=== PATIENT | female | born 1945 | race Caucasian/White ===

== ENCOUNTER 2021-09-21 14:14 | Outpatient (CLI) | payer MEDICARE | END 2021-09-21 14:15 | disposition home or self-care (01) | LOC: CSHMAMMO 14:14 | PROVIDERS: ATTEND Internal Medicine Hematology & Oncology | DX: Z13.820 Encounter for screening for osteoporosis (principal); M85.851 Other specified disorders of bone density and structure, right thigh; M85.852 Other specified disorders of bone density and structure, left thigh; T38.6X5A Adverse effect of antigonadotrophins, antiestrogens, antiandrogens, not elsewhere classified, initial encounter | CPT/HCPCS: 77080 ==

== ENCOUNTER 2022-09-27 09:51 | Outpatient (CLI) | payer MEDICARE | END 2022-09-27 09:52 | disposition home or self-care (01) | LOC: CSHMAMMO 09:51 | PROVIDERS: ATTEND Internal Medicine Hematology & Oncology | DX: M85.852 Other specified disorders of bone density and structure, left thigh (principal); C50.111 Malignant neoplasm of central portion of right female breast | CPT/HCPCS: 77080 ==

== ENCOUNTER 2023-07-27 11:41 | Inpatient (IN) | payer MEDICARE ==
[2023-07-27] MEDS ORDERED: Dexamethasone 10 MG/ML VIAL ONE (12:16)
[2023-07-27] MEDS ORDERED: Ondansetron PF 4 MG/2 ML Vial ONE (12:16)
[2023-07-27] MEDS ORDERED: Acetaminophen 500 MG TAB ONE (12:16)
[2023-07-27 12:35] LABS: Actual Bicarbonate (HCO3a) 25.2 mEq/L (22-28); Base Excess (BEa) 1.9 mEq/L (-2.0 to +3.0); CO2 Tension 34.9 mmHg (35.0-45.0); Calcium, Ionized (arterial) 1.13 mmol/L (1.12-1.30); Carboxyhemoglobin (COHb) 0.3 gm% (0.0-3.0); Hematocrit-ABG 37 % (36.0-47.0); Hemoglobin (Hb) 12.7 g/dL (12.0-16.0); O2 Tension (PaO2), arterial 63.2 mmHg (> 70.0); Potassium - ABG Lab 3.38 mmol/L (3.70-5.30); Puncture Site RRA; pH, Arterial 7.476 (7.35-7.45)
[2023-07-27 12:41] LABS: Hematocrit 37.4 % (34.9-44.5); Mean Corpuscular HGB CONC 34.8 g/dL (32.0-36.0); Mean Corpuscular Hemoglobin 32.7 pg (27.0-33.0); Mean Corpuscular Volume 94.2 fl (81.6-98.3); Mean Platelet Volume 9.9 fl (7.4-10.4); Platelet Count 215 10x3/uL (150-450); RBC Distribution Width 12.5 % (11.5-14.5); Red Blood Cell (RBC) Count 3.97 10x6/uL (3.90-5.03); White Blood Cell (WBC) Count 7.8 10x3/uL (3.5-10.5)
[2023-07-27] MEDS ORDERED: LevoFLOXacin 750 mg/D5W 150 ml Premix Bag ONE (12:43)
[2023-07-27 12:47] LABS: ALT (SGPT) 20 U/L (8-55); AST (SGOT) 59 U/L (5-34); Albumin 3.3 g/dL (3.4-4.8); Alkaline Phosphatase 41 U/L (40-110); Anion Gap 17 mmol/L (10-20); BUN (Urea Nitrogen) 28 mg/dL (9.8-20.1); Bilirubin, Total 0.4 mg/dL (0.2-1.2); Calc. Creatinine Clearance 0 mL/min (70-130); Calcium 8.6 mg/dL (7.8-10.44); Carbon Dioxide 26 mmol/L (23-31); Chloride 92 mmol/L (98-107); Estimated GFR 64; Globulin 2.2 g/dL (2.4-3.5); Glucose 184 mg/dL (83-110); Potassium 3.7 mmol/L (3.5-5.1); Protein, Total 5.5 g/dL (5.8-8.1); Sodium 131 mmol/L (136-145)
[2023-07-27 12:50] LABS: D-Dimer Test 1.13 mg/L FEU (0.19-0.50); INR-International Normal Ratio 1.1; PTT 28.4 sec (22.0-33.0); Prothrombin Time 11.4 sec (9.5-12.1); Troponin I 0.066 ng/mL (< 0.028)
[2023-07-27] MEDS ORDERED: Dextrose 5% in Water 1,000 ML IV PRN (13:20)
[2023-07-27] MEDS ORDERED: HumaLOG 300 UNITS/3 ML VIAL SC PRN (13:20)
[2023-07-27] MEDS ORDERED: Glucagon 1 MG/ML KIT IM PRN (13:20)
[2023-07-27] MEDS ORDERED: Ondansetron ODT 4 MG TAB PO PRN (13:20)
[2023-07-27] MEDS ORDERED: Dextrose 50% Abboject 50 ML SYRINGE SLOW IVP PRN (13:20)
[2023-07-27] MEDS ORDERED: Ondansetron PF 4 MG/2 ML Vial IVP PRN (13:20)
[2023-07-27 13:22] LABS: Band 9 % (5-11); Monocytes 5 % (0-10); Myelocyte 2 % (0-0)
[2023-07-27 13:24] LABS: Lymphocytes 12 % (21-51); Reactive Lymphocytes 5 % (0-10)
[2023-07-27 13:25] LABS: Neutrophil 67 % (42-75); RBC Morph Comment Within Normal Limits
[2023-07-27 13:26] LABS: Platelet Adequacy Comment Appears Adequate
[2023-07-27 13:27] LABS: MDiff Complete? YES; Platelet Clumps SLIGHT
[2023-07-27 14:21] LABS: SARS-CoV-2 NAA Rapid Test DETECTED (NotDetected)
[2023-07-27 19:39] LABS: Troponin I 0.031 ng/mL (< 0.028)
[2023-07-27 20:36] VITALS: BMI 28.3
[2023-07-27] MEDS: Sodium Chloride 0.9% 1,000 ML IV SCH (22:30)
[2023-07-27] MEDS: hydrALAZINE 25 MG TAB PO SCH (22:31)
[2023-07-27 23:00] LABS: Legionella Urinary Ag Negative (Negative); Strep pneumo Urine Ag NEGATIVE (NEGATIVE)
[2023-07-27] MEDS ORDERED: Ibuprofen 200 MG TAB PO SCH (23:45)
[2023-07-28] MEDS: Sodium Chloride 0.9% 1,000 ML IV SCH ×2 (03:16→09:48)
[2023-07-28 03:58] LABS: Hematocrit 39.2 % (34.9-44.5); Hemoglobin 12.8 g/dL (12.0-15.5); Mean Corpuscular HGB CONC 32.7 g/dL (32.0-36.0); Mean Corpuscular Hemoglobin 31.3 pg (27.0-33.0); Mean Corpuscular Volume 95.8 fl (81.6-98.3); Mean Platelet Volume 9.4 fl (7.4-10.4); Platelet Count 222 10x3/uL (150-450); RBC Distribution Width 12.6 % (11.5-14.5); Red Blood Cell (RBC) Count 4.09 10x6/uL (3.90-5.03); White Blood Cell (WBC) Count 5.9 10x3/uL (3.5-10.5)
[2023-07-28 04:01] LABS: ALT (SGPT) 19 U/L (8-55); AST (SGOT) 45 U/L (5-34); Albumin 3.1 g/dL (3.4-4.8); Alkaline Phosphatase 40 U/L (40-110); Anion Gap 16 mmol/L (10-20); BUN (Urea Nitrogen) 24 mg/dL (9.8-20.1); Bilirubin, Total 0.3 mg/dL (0.2-1.2); CRP (Inflammatory) 17.36 mg/dL (= or < 0.5); Calc. Creatinine Clearance 62 mL/min (70-130); Calcium 8.8 mg/dL (7.8-10.44); Carbon Dioxide 25 mmol/L (23-31); Chloride 102 mmol/L (98-107); Estimated GFR 67; Globulin 2.7 g/dL (2.4-3.5); Glucose 186 mg/dL (83-110); Magnesium 1.8 mg/dL (1.6-2.6); Potassium 4.4 mmol/L (3.5-5.1); Protein, Total 5.8 g/dL (5.8-8.1); Sodium 139 mmol/L (136-145)
[2023-07-28] MEDS: Ventolin HFA Inhaler 60 PUFF INHALER INH PRN ×3 (04:40→22:00)
[2023-07-28 04:54] LABS: MDiff Complete? YES
[2023-07-28 05:21] LABS: Band 6 % (5-11); Lymphocytes 2 % (21-51); Monocytes 6 % (0-10); Neutrophil 80 % (42-75); Reactive Lymphocytes 6 % (0-10)
[2023-07-28 05:24] LABS: Platelet Adequacy Comment Appears Adequate; RBC Morph Comment Within Normal Limits
[2023-07-28] MEDS: Levothyroxine Sodium 75 MCG TAB PO SCH (06:16)
[2023-07-28] MEDS: hydrALAZINE 25 MG TAB PO SCH ×2 (09:45→20:31)
[2023-07-28] MEDS: Fenofibrate Nanocrystallized 145 MG TAB PO SCH (09:45)
[2023-07-28] MEDS: Dexamethasone 4 mg/ml Vial SLOW IVP SCH (09:45)
[2023-07-28] MEDS ORDERED: Dexamethasone 20 MG/5 ML VIAL SLOW IVP SCH (11:00)
[2023-07-28] MEDS ORDERED: LevoFLOXacin 750 mg/D5W 750 MG in Premix 1 BAG IVPB SCH (12:00)
[2023-07-28] MEDS ORDERED: Loperamide HCl 2 MG CAP PO PRN (13:53)
[2023-07-28] MEDS ORDERED: Furosemide 40 MG/4 ML VIAL SLOW IVP SCH ×2 (15:30)
[2023-07-28] MEDS: HumaLOG 300 UNITS/3 ML VIAL SC PRN (16:43)
[2023-07-28] MEDS ORDERED: Ibuprofen 200 MG TAB PO SCH (21:15)
[2023-07-29] MEDS ORDERED: Ibuprofen 200 MG TAB PO SCH (04:00)
[2023-07-29] MEDS: Ventolin HFA Inhaler 60 PUFF INHALER INH PRN ×3 (04:10→18:35)
[2023-07-29 05:34] LABS: Hematocrit 39.6 % (34.9-44.5); Hemoglobin 13.1 g/dL (12.0-15.5); Mean Corpuscular HGB CONC 33.1 g/dL (32.0-36.0); Mean Corpuscular Hemoglobin 31.3 pg (27.0-33.0); Mean Corpuscular Volume 94.5 fl (81.6-98.3); Mean Platelet Volume 9.8 fl (7.4-10.4); Platelet Count 254 10x3/uL (150-450); RBC Distribution Width 12.8 % (11.5-14.5); Red Blood Cell (RBC) Count 4.19 10x6/uL (3.90-5.03); White Blood Cell (WBC) Count 8.9 10x3/uL (3.5-10.5)
[2023-07-29] MEDS: Levothyroxine Sodium 75 MCG TAB PO SCH (05:40)
[2023-07-29 05:44] LABS: ALT (SGPT) 18 U/L (8-55); AST (SGOT) 39 U/L (5-34); Albumin 3.1 g/dL (3.4-4.8); Alkaline Phosphatase 40 U/L (40-110); Anion Gap 16 mmol/L (10-20); BUN (Urea Nitrogen) 30 mg/dL (9.8-20.1); Bilirubin, Total 0.4 mg/dL (0.2-1.2); Calc. Creatinine Clearance 52 mL/min (70-130); Carbon Dioxide 26 mmol/L (23-31); Chloride 102 mmol/L (98-107); Estimated GFR 55; Globulin 2.7 g/dL (2.4-3.5); Glucose 179 mg/dL (83-110); Magnesium 1.7 mg/dL (1.6-2.6); Protein, Total 5.8 g/dL (5.8-8.1); Sodium 140 mmol/L (136-145)
[2023-07-29 06:03] LABS: MDiff Complete? YES
[2023-07-29 08:09] LABS: Band 8 % (5-11); Lymphocytes 5 % (21-51); Monocytes 7 % (0-10); Neutrophil 74 % (42-75); Reactive Lymphocytes 6 % (0-10)
[2023-07-29 08:12] LABS: RBC Morph Comment Within Normal Limits
[2023-07-29 08:13] LABS: Large Platelets SLIGHT (None Seen); Platelet Adequacy Comment Appears Adequate
[2023-07-29] MEDS: Dexamethasone 4 mg/ml Vial SLOW IVP SCH (08:31)
[2023-07-29] MEDS: hydrALAZINE 25 MG TAB PO SCH ×2 (08:32→20:12)
[2023-07-29] MEDS: Anastrozole 1 MG TAB PO SCH (09:13)
[2023-07-29] MEDS: Fenofibrate Nanocrystallized 145 MG TAB PO SCH (09:17)
[2023-07-29] MEDS: HumaLOG 300 UNITS/3 ML VIAL SC PRN ×2 (12:11→16:37)
[2023-07-29] MEDS ORDERED: Furosemide 40 MG/4 ML VIAL SLOW IVP SCH (13:00)
[2023-07-29] MEDS: Acetaminophen 325 MG TAB PO PRN (18:47)
[2023-07-29] MEDS: Ibuprofen 400 MG TAB PO PRN (20:29)
[2023-07-29] MEDS ORDERED: Lorazepam 0.5 MG TAB PO SCH (21:00)
[2023-07-30] MEDS: Ventolin HFA Inhaler 60 PUFF INHALER INH PRN ×3 (03:15→21:16)
[2023-07-30 04:04] LABS: #Monocytes 0.3 10x3/uL (0.0-1.1); #Neutrophils 7.6 10x3/uL (1.5-8.4); %Basophils 0.2 % (0.0-2.0); %Lymphocytes 16.5 % (18.0-47.0); %Monocytes 2.6 % (0.0-10.0); %Neutrophils 79.1 % (40.0-75.0); Hematocrit 40.7 % (34.9-44.5); Hemoglobin 13.8 g/dL (12.0-15.5); Mean Corpuscular HGB CONC 33.9 g/dL (32.0-36.0); Mean Corpuscular Volume 94.4 fl (81.6-98.3); Mean Platelet Volume 9.4 fl (7.4-10.4); Platelet Count 256 10x3/uL (150-450); RBC Distribution Width 12.8 % (11.5-14.5); Red Blood Cell (RBC) Count 4.31 10x6/uL (3.90-5.03); White Blood Cell (WBC) Count 9.6 10x3/uL (3.5-10.5)
[2023-07-30 04:09] LABS: ALT (SGPT) 19 U/L (8-55); AST (SGOT) 32 U/L (5-34); Albumin 3.2 g/dL (3.4-4.8); Alkaline Phosphatase 46 U/L (40-110); Anion Gap 17 mmol/L (10-20); BUN (Urea Nitrogen) 35 mg/dL (9.8-20.1); Bilirubin, Total 0.6 mg/dL (0.2-1.2); CRP (Inflammatory) 5.88 mg/dL (= or < 0.5); Calc. Creatinine Clearance 62 mL/min (70-130); Calcium 9.2 mg/dL (7.8-10.44); Carbon Dioxide 29 mmol/L (23-31); Chloride 100 mmol/L (98-107); Estimated GFR 67; Globulin 2.7 g/dL (2.4-3.5); Glucose 145 mg/dL (83-110); Magnesium 1.7 mg/dL (1.6-2.6); Potassium 3.7 mmol/L (3.5-5.1); Protein, Total 5.9 g/dL (5.8-8.1); Sodium 142 mmol/L (136-145)
[2023-07-30] MEDS: Levothyroxine Sodium 75 MCG TAB PO SCH (05:07)
[2023-07-30] MEDS: Ibuprofen 400 MG TAB PO PRN (05:13)
[2023-07-30] MEDS: Fenofibrate Nanocrystallized 145 MG TAB PO SCH (08:39)
[2023-07-30] MEDS: Dexamethasone 4 mg/ml Vial SLOW IVP SCH (08:39)
[2023-07-30] MEDS: hydrALAZINE 25 MG TAB PO SCH ×2 (08:39→20:51)
[2023-07-30] MEDS: Anastrozole 1 MG TAB PO SCH (08:39)
[2023-07-30] MEDS: HumaLOG 300 UNITS/3 ML VIAL SC PRN ×2 (11:43→15:50)
[2023-07-30] MEDS ORDERED: LevoFLOXacin 750 mg/D5W 750 MG in Premix 1 BAG IVPB SCH (12:00)
[2023-07-30] MEDS ORDERED: Furosemide 100 MG/10 ML VIAL SLOW IVP SCH (12:00)
[2023-07-30] MEDS: Acetaminophen 325 MG TAB PO PRN (12:59)
[2023-07-31] MEDS: Ibuprofen 400 MG TAB PO PRN (00:19)
[2023-07-31 03:42] LABS: #Monocytes 0.3 10x3/uL (0.0-1.1); #Neutrophils 6.1 10x3/uL (1.5-8.4); %Basophils 0.5 % (0.0-2.0); %Eosinophils 0.4 % (0.0-6.0); %Lymphocytes 20.3 % (18.0-47.0); %Monocytes 3.1 % (0.0-10.0); %Neutrophils 73.3 % (40.0-75.0); Hematocrit 42.1 % (34.9-44.5); Hemoglobin 14.2 g/dL (12.0-15.5); Mean Corpuscular HGB CONC 33.7 g/dL (32.0-36.0); Mean Corpuscular Hemoglobin 31.8 pg (27.0-33.0); Mean Corpuscular Volume 94.4 fl (81.6-98.3); Mean Platelet Volume 9.7 fl (7.4-10.4); Platelet Count 278 10x3/uL (150-450); RBC Distribution Width 12.7 % (11.5-14.5); Red Blood Cell (RBC) Count 4.46 10x6/uL (3.90-5.03); White Blood Cell (WBC) Count 8.3 10x3/uL (3.5-10.5)
[2023-07-31 03:58] LABS: ALT (SGPT) 18 U/L (8-55); AST (SGOT) 27 U/L (5-34); Albumin 3.2 g/dL (3.4-4.8); Alkaline Phosphatase 43 U/L (40-110); Anion Gap 17 mmol/L (10-20); BUN (Urea Nitrogen) 27 mg/dL (9.8-20.1); Bilirubin, Total 0.6 mg/dL (0.2-1.2); Calc. Creatinine Clearance 69 mL/min (70-130); Calcium 9.1 mg/dL (7.8-10.44); Carbon Dioxide 27 mmol/L (23-31); Chloride 99 mmol/L (98-107); Estimated GFR 77; Glucose 122 mg/dL (83-110); Magnesium 1.7 mg/dL (1.6-2.6); Potassium 3.3 mmol/L (3.5-5.1); Protein, Total 6.2 g/dL (5.8-8.1); Sodium 140 mmol/L (136-145)
[2023-07-31] MEDS: Levothyroxine Sodium 75 MCG TAB PO SCH (05:23)
[2023-07-31] MEDS: LevoFLOXacin 750 MG TAB PO SCH (05:23)
[2023-07-31] MEDS: Dexamethasone 4 mg/ml Vial SLOW IVP SCH (08:22)
[2023-07-31] MEDS: hydrALAZINE 25 MG TAB PO SCH ×2 (08:22→21:23)
[2023-07-31] MEDS: Anastrozole 1 MG TAB PO SCH (08:23)
[2023-07-31] MEDS: Fenofibrate Nanocrystallized 145 MG TAB PO SCH (08:23)
[2023-07-31] MEDS: Magnesium 2 GM/50 ML(in water) 2 GM in Premix 1 BAG IVPB SCH ×2 (08:59→09:23)
[2023-07-31] MEDS ORDERED: Potassium Chloride 20 MEQ TAB PO SCH ×2 (09:00→17:00)
[2023-07-31] MEDS: HumaLOG 300 UNITS/3 ML VIAL SC PRN ×2 (11:29→16:39)
[2023-07-31] MEDS ORDERED: Ventolin HFA Inhaler 60 PUFF INHALER INH SCH (18:30)
[2023-07-31] MEDS: Ventolin HFA Inhaler 60 PUFF INHALER INH SCH (18:48)
[2023-07-31] MEDS: Cholecalciferol 1,000 UNITS (25 MCG) TAB PO SCH (21:24)
[2023-07-31] MEDS: Zinc Sulfate 220 MG CAP PO SCH (21:24)
[2023-07-31] MEDS: Multivit, Therapeutic 1 TAB PO SCH (21:24)
[2023-07-31] MEDS: Ascorbic Acid 500 mg Chewable Tablet PO SCH (21:24)
[2023-07-31] MEDS: Acetaminophen 325 MG TAB PO PRN (21:28)
[2023-08-01 04:21] LABS: #Eosinphils 0.1 10x3/uL (0.0-0.5); #Monocytes 0.3 10x3/uL (0.0-1.1); #Neutrophils 5.7 10x3/uL (1.5-8.4); %Basophils 0.5 % (0.0-2.0); %Eosinophils 0.8 % (0.0-6.0); %Lymphocytes 19.5 % (18.0-47.0); %Monocytes 3.8 % (0.0-10.0); %Neutrophils 73.1 % (40.0-75.0); Hematocrit 42.8 % (34.9-44.5); Hemoglobin 14.6 g/dL (12.0-15.5); Mean Corpuscular HGB CONC 34.1 g/dL (32.0-36.0); Mean Corpuscular Hemoglobin 32.5 pg (27.0-33.0); Mean Corpuscular Volume 95.3 fl (81.6-98.3); Mean Platelet Volume 9.6 fl (7.4-10.4); Platelet Count 300 10x3/uL (150-450); RBC Distribution Width 12.8 % (11.5-14.5); Red Blood Cell (RBC) Count 4.49 10x6/uL (3.90-5.03); White Blood Cell (WBC) Count 7.7 10x3/uL (3.5-10.5)
[2023-08-01 04:37] LABS: ALT (SGPT) 15 U/L (8-55); AST (SGOT) 31 U/L (5-34); Albumin 3.1 g/dL (3.4-4.8); Alkaline Phosphatase 46 U/L (40-110); Anion Gap 15 mmol/L (10-20); BUN (Urea Nitrogen) 28 mg/dL (9.8-20.1); Bilirubin, Total 0.7 mg/dL (0.2-1.2); Calc. Creatinine Clearance 72 mL/min (70-130); Carbon Dioxide 24 mmol/L (23-31); Chloride 103 mmol/L (98-107); Estimated GFR 81; Globulin 3.1 g/dL (2.4-3.5); Glucose 114 mg/dL (83-110); Magnesium 1.9 mg/dL (1.6-2.6); Phosphorus 2.7 mg/dL (2.3-4.7); Protein, Total 6.2 g/dL (5.8-8.1); Sodium 138 mmol/L (136-145)
[2023-08-01 04:48] LABS: CRP (Inflammatory) 2.97 mg/dL (= or < 0.5)
[2023-08-01] MEDS: LevoFLOXacin 750 MG TAB PO SCH (05:20)
[2023-08-01] MEDS: Levothyroxine Sodium 75 MCG TAB PO SCH (05:20)
[2023-08-01] MEDS: Ventolin HFA Inhaler 60 PUFF INHALER INH SCH ×7 (07:00→22:21)
[2023-08-01] MEDS ORDERED: Magnesium 2 GM/50 ML(in water) 2 GM in Premix 1 BAG IVPB SCH (07:45)
[2023-08-01] MEDS: Dexamethasone 4 mg/ml Vial SLOW IVP SCH (08:15)
[2023-08-01] MEDS: Fenofibrate Nanocrystallized 145 MG TAB PO SCH (08:15)
[2023-08-01] MEDS: Anastrozole 1 MG TAB PO SCH (08:15)
[2023-08-01] MEDS: hydrALAZINE 25 MG TAB PO SCH ×2 (08:15→21:09)
[2023-08-01] MEDS: HumaLOG 300 UNITS/3 ML VIAL SC PRN ×2 (10:21→16:11)
[2023-08-01] MEDS ORDERED: Docusate 100 MG CAP PO PRN (14:17)
[2023-08-01] MEDS: Zinc Sulfate 220 MG CAP PO SCH (21:09)
[2023-08-01] MEDS: Cholecalciferol 1,000 UNITS (25 MCG) TAB PO SCH (21:09)
[2023-08-01] MEDS: Ascorbic Acid 500 mg Chewable Tablet PO SCH (21:09)
[2023-08-01] MEDS: Multivit, Therapeutic 1 TAB PO SCH (21:09)
[2023-08-02] MEDS: Ventolin HFA Inhaler 60 PUFF INHALER INH SCH ×6 (03:05→23:05)
[2023-08-02] MEDS ORDERED: Ibuprofen 400 MG TAB PO SCH (03:15)
[2023-08-02 04:06] LABS: #Eosinphils 0.1 10x3/uL (0.0-0.5); #Monocytes 0.5 10x3/uL (0.0-1.1); #Neutrophils 8.5 10x3/uL (1.5-8.4); %Basophils 0.2 % (0.0-2.0); %Eosinophils 0.7 % (0.0-6.0); %Lymphocytes 13.8 % (18.0-47.0); %Monocytes 4.7 % (0.0-10.0); %Neutrophils 79.4 % (40.0-75.0); Hematocrit 42.4 % (34.9-44.5); Hemoglobin 14.3 g/dL (12.0-15.5); Mean Corpuscular HGB CONC 33.7 g/dL (32.0-36.0); Mean Corpuscular Hemoglobin 31.8 pg (27.0-33.0); Mean Corpuscular Volume 94.4 fl (81.6-98.3); Mean Platelet Volume 9.5 fl (7.4-10.4); Platelet Count 311 10x3/uL (150-450); RBC Distribution Width 12.6 % (11.5-14.5); Red Blood Cell (RBC) Count 4.49 10x6/uL (3.90-5.03); White Blood Cell (WBC) Count 10.7 10x3/uL (3.5-10.5)
[2023-08-02 04:12] LABS: Anion Gap 17 mmol/L (10-20); BUN (Urea Nitrogen) 25 mg/dL (9.8-20.1); Calc. Creatinine Clearance 70 mL/min (70-130); Carbon Dioxide 22 mmol/L (23-31); Chloride 102 mmol/L (98-107); Estimated GFR 82; Glucose 142 mg/dL (83-110); Potassium 3.5 mmol/L (3.5-5.1); Sodium 137 mmol/L (136-145)
[2023-08-02] MEDS: Levothyroxine Sodium 75 MCG TAB PO SCH (05:54)
[2023-08-02] MEDS: HumaLOG 300 UNITS/3 ML VIAL SC PRN ×3 (06:30→16:57)
[2023-08-02] MEDS: hydrALAZINE 25 MG TAB PO SCH ×2 (08:16→20:04)
[2023-08-02] MEDS: Potassium Bicarbonate/Cit Ac 20 MEQ TAB PO SCH ×2 (08:16→16:57)
[2023-08-02] MEDS: Dexamethasone 4 mg/ml Vial SLOW IVP SCH (08:16)
[2023-08-02] MEDS: Fenofibrate Nanocrystallized 145 MG TAB PO SCH (08:17)
[2023-08-02] MEDS: Anastrozole 1 MG TAB PO SCH (08:17)
[2023-08-02] MEDS: Ascorbic Acid 500 mg Chewable Tablet PO SCH (20:04)
[2023-08-02] MEDS: Zinc Sulfate 220 MG CAP PO SCH (20:04)
[2023-08-02] MEDS: Multivit, Therapeutic 1 TAB PO SCH (20:04)
[2023-08-02] MEDS: Cholecalciferol 1,000 UNITS (25 MCG) TAB PO SCH (20:04)
[2023-08-03 03:31] LABS: #Eosinphils 0.2 10x3/uL (0.0-0.5); #Monocytes 0.6 10x3/uL (0.0-1.1); #Neutrophils 7.5 10x3/uL (1.5-8.4); %Basophils 0.4 % (0.0-2.0); %Eosinophils 1.5 % (0.0-6.0); %Monocytes 6.4 % (0.0-10.0); %Neutrophils 76.5 % (40.0-75.0); Hemoglobin 14.7 g/dL (12.0-15.5); Mean Corpuscular HGB CONC 33.4 g/dL (32.0-36.0); Mean Corpuscular Hemoglobin 31.4 pg (27.0-33.0); Mean Platelet Volume 9.6 fl (7.4-10.4); Platelet Count 319 10x3/uL (150-450); Red Blood Cell (RBC) Count 4.68 10x6/uL (3.90-5.03); White Blood Cell (WBC) Count 9.8 10x3/uL (3.5-10.5)
[2023-08-03 03:46] LABS: Anion Gap 14 mmol/L (10-20); BUN (Urea Nitrogen) 23 mg/dL (9.8-20.1); Calc. Creatinine Clearance 72 mL/min (70-130); Calcium 9.1 mg/dL (7.8-10.44); Carbon Dioxide 23 mmol/L (23-31); Chloride 105 mmol/L (98-107); Estimated GFR 85; Glucose 150 mg/dL (83-110); Potassium 3.8 mmol/L (3.5-5.1); Sodium 138 mmol/L (136-145)
[2023-08-03] MEDS: Levothyroxine Sodium 75 MCG TAB PO SCH (05:03)
[2023-08-03] MEDS: Ventolin HFA Inhaler 60 PUFF INHALER INH SCH ×3 (06:30→13:28)
[2023-08-03] MEDS: Fenofibrate Nanocrystallized 145 MG TAB PO SCH (08:34)
[2023-08-03] MEDS: Dexamethasone 4 mg/ml Vial SLOW IVP SCH (08:34)
[2023-08-03] MEDS: hydrALAZINE 25 MG TAB PO SCH (08:34)
[2023-08-03] MEDS: Anastrozole 1 MG TAB PO SCH (08:34)
[2023-08-03 16:10] VITALS: BP 129/84; TEMP 98
== END 2023-08-03 17:13 | disposition home or self-care (01) | DRG 871 ==
LOC: CSHERS 11:41 → SUATTDRO 11:41 → CSHERHOLD 13:20 → CSHTELE 19:39 → CSHICU 07-28 16:14
PROVIDERS: ADMIT Internal Medicine; ATTEND Internal Medicine
PROC: 4A033R1 Measurement of Arterial Saturation, Peripheral, Percutaneous Approach (ICD-10-PCS; 2023-07-27)
PROC: 3E03329 Introduction of Other Anti-infective into Peripheral Vein, Percutaneous Approach (ICD-10-PCS; 2023-07-27)
PROC: 8E0ZXY6 Isolation (ICD-10-PCS; 2023-07-27)
PROC: 5A0945A Assistance with Respiratory Ventilation, 24-96 Consecutive Hours, High Flow/Velocity Cannula (ICD-10-PCS; principal; 2023-07-28)
PROC: 3E0333Z Introduction of Anti-inflammatory into Peripheral Vein, Percutaneous Approach (ICD-10-PCS; 2023-07-28)
DX: A41.89 Other specified sepsis (principal); I21.A1 Myocardial infarction type 2; U07.1 COVID-19; J12.82 Pneumonia due to coronavirus disease 2019; J96.01 Acute respiratory failure with hypoxia; N17.9 Acute kidney failure, unspecified; E87.1 Hypo-osmolality and hyponatremia; E44.1 Mild protein-calorie malnutrition; R65.20 Severe sepsis without septic shock; E03.9 Hypothyroidism, unspecified; N18.2 Chronic kidney disease, stage 2 (mild); E78.5 Hyperlipidemia, unspecified; R79.89 Other specified abnormal findings of blood chemistry; I12.9 Hypertensive chronic kidney disease with stage 1 through stage 4 chronic kidney disease, or unspecified chronic kidney disease; Z79.899 Other long term (current) drug therapy; Z79.84 Long term (current) use of oral hypoglycemic drugs; Z90.710 Acquired absence of both cervix and uterus; Z98.890 Other specified postprocedural states; Z90.49 Acquired absence of other specified parts of digestive tract; Z88.8 Allergy status to other drugs, medicaments and biological substances; Z88.0 Allergy status to penicillin; Z88.5 Allergy status to narcotic agent; Z68.27 Body mass index [BMI] 27.0-27.9, adult
CPT/HCPCS: 36415; 36416; 36600; 71045; 80048; 80053; 82728; 82805; 83605; 83735; 83880; 84100; 84145; 84484; 85025; 85379; 85610; 85730; 86140; 86850; 86900; 86901; 87040; 87081; 87449; 87899; 93005; 93306; 94640; 94664; 94760; 94762; 96374; 96375; J1100; J1650; J1815; J1940; J1956; J2405; J3475; J7050

== ENCOUNTER 2024-03-07 10:04 | Outpatient (CLI) | payer MEDICARE ==
[2024-03-07] MEDS ORDERED: Iopamidol 300 61% 100 ML VIAL FS ONE (12:26)
== END 2024-03-07 10:05 | disposition home or self-care (01) ==
LOC: CSHCT 10:04
PROVIDERS: ATTEND Nurse Practitioner Family
DX: R31.29 Other microscopic hematuria (principal); N20.0 Calculus of kidney; N28.9 Disorder of kidney and ureter, unspecified; K57.30 Diverticulosis of large intestine without perforation or abscess without bleeding
CPT/HCPCS: 74178; 82565; Q9967